=== PATIENT | male | born 1935 | race Caucasian/White ===

== ENCOUNTER 2022-11-12 11:32 | Inpatient (IN) | payer MEDICARE, OTHER, MEDICAID ==
[2022-11-12] MEDS ORDERED: Acetaminophen/HYDROcodone 325-5 MG Tab PO PRN (16:09)
[2022-11-12] MEDS ORDERED: LORazepam 0.5 MG Tab PO PRN (16:57)
[2022-11-12] MEDS ORDERED: Albuterol 6.7 GM Inhaler INH PRN (17:29)
[2022-11-12 17:32] LABS: ANION GAP 10.9 meq/L (7-15)
[2022-11-12 18:40] LABS: CORONAVIRUS COVID-19 NAA NEGATIVE (NEGATIVE); RESPIRATORY SYNCYTIAL VIR NAA NEGATIVE (NEGATIVE)
[2022-11-12] MEDS ORDERED: Warfarin 5 MG Tab PO ONE (18:56)
[2022-11-12] MEDS: Magnesium Oxide 400 MG Tab PO SCH (19:36)
[2022-11-12] MEDS: Melatonin 3 MG Tab PO SCH (20:25)
[2022-11-13] MEDS: Acetaminophen/HYDROcodone 325-5 MG Tab PO PRN ×5 (00:07→23:46)
[2022-11-13] MEDS: Tiotropium Bromide 4 GM Inhalation Spray (2.5mcg/1 dose; 10 doses) INH SCH (07:29)
[2022-11-13] MEDS: Polyethylene Glycol 3350 Powder 17 GM Packet PO SCH (07:29)
[2022-11-13] MEDS: Ferrous Sulfate 325 MG Tab PO SCH (07:29)
[2022-11-13] MEDS: Calcium Carbonate/Vitamin D3 1500 MG-400 Units Tab PO SCH (07:29)
[2022-11-13] MEDS: Furosemide 40 MG Tab PO SCH (07:29)
[2022-11-13] MEDS: Magnesium Oxide 400 MG Tab PO SCH ×2 (07:29→17:32)
[2022-11-13] MEDS: Terazosin 1 MG Cap PO SCH (07:31)
[2022-11-13] MEDS: Enoxaparin 30 MG/0.3 ML Syringe SUBCUT SCH ×2 (11:37→22:21)
[2022-11-13] MEDS: Ciprofloxacin 500 MG Tab PO SCH (17:32)
[2022-11-13] MEDS ORDERED: Nitrofurantoin Monohydrate/Macrocrystalline 100 MG Cap PO SCH (18:00)
[2022-11-13] MEDS ORDERED: Warfarin 5 MG Tab PO SCH (18:00)
[2022-11-13] MEDS: Melatonin 3 MG Tab PO SCH (19:11)
[2022-11-13] MEDS: Cyclobenzaprine 10 MG Tab PO PRN (19:59)
[2022-11-14] MEDS: Acetaminophen/HYDROcodone 325-5 MG Tab PO PRN ×3 (09:33→20:49)
[2022-11-14] MEDS: Polyethylene Glycol 3350 Powder 17 GM Packet PO SCH (09:46)
[2022-11-14] MEDS: Calcium Carbonate/Vitamin D3 1500 MG-400 Units Tab PO SCH (09:46)
[2022-11-14] MEDS: Tamsulosin 0.4 MG Cap.ER PO SCH (09:46)
[2022-11-14] MEDS: Terazosin 1 MG Cap PO SCH (09:47)
[2022-11-14] MEDS: Ciprofloxacin 500 MG Tab PO SCH ×2 (09:49→17:47)
[2022-11-14] MEDS: Furosemide 40 MG Tab PO SCH (09:49)
[2022-11-14] MEDS: Magnesium Oxide 400 MG Tab PO SCH ×2 (09:49→17:47)
[2022-11-14] MEDS: Tiotropium Bromide 4 GM Inhalation Spray (2.5mcg/1 dose; 10 doses) INH SCH (09:50)
[2022-11-14] MEDS: Ferrous Sulfate 325 MG Tab PO SCH (09:50)
[2022-11-14] MEDS: Enoxaparin 30 MG/0.3 ML Syringe SUBCUT SCH (11:28)
[2022-11-14] MEDS ORDERED: Glycerin 5.4 GM/7.5 ML Suppository RECTAL ONE (12:27)
[2022-11-14] MEDS ORDERED: Warfarin 2.5 MG Tab PO SCH (18:00)
[2022-11-14] MEDS: Melatonin 3 MG Tab PO SCH (20:45)
[2022-11-15] MEDS: Acetaminophen/HYDROcodone 325-5 MG Tab PO PRN ×4 (02:50→19:30)
[2022-11-15] MEDS: Ciprofloxacin 500 MG Tab PO SCH ×2 (07:50→17:26)
[2022-11-15] MEDS: Calcium Carbonate/Vitamin D3 1500 MG-400 Units Tab PO SCH (07:50)
[2022-11-15] MEDS: Furosemide 40 MG Tab PO SCH (07:51)
[2022-11-15] MEDS: Polyethylene Glycol 3350 Powder 17 GM Packet PO SCH (07:51)
[2022-11-15] MEDS: Ferrous Sulfate 325 MG Tab PO SCH (07:51)
[2022-11-15] MEDS: Magnesium Oxide 400 MG Tab PO SCH ×2 (07:51→17:26)
[2022-11-15] MEDS: Tamsulosin 0.4 MG Cap.ER PO SCH (07:51)
[2022-11-15] MEDS: Tiotropium Bromide 4 GM Inhalation Spray (2.5mcg/1 dose; 10 doses) INH SCH (08:00)
[2022-11-15] MEDS: Terazosin 1 MG Cap PO SCH (08:00)
[2022-11-15] MEDS: Acetaminophen 500 MG Tab PO SCH ×2 (17:26→21:19)
[2022-11-15] MEDS: Melatonin 3 MG Tab PO SCH (20:50)
[2022-11-16] MEDS: Acetaminophen/HYDROcodone 325-5 MG Tab PO PRN ×4 (02:59→18:04)
[2022-11-16] MEDS: Acetaminophen 500 MG Tab PO SCH (03:20)
[2022-11-16] MEDS: Calcium Carbonate/Vitamin D3 1500 MG-400 Units Tab PO SCH (07:32)
[2022-11-16] MEDS: Furosemide 40 MG Tab PO SCH (07:32)
[2022-11-16] MEDS: Ferrous Sulfate 325 MG Tab PO SCH (07:32)
[2022-11-16] MEDS: Tamsulosin 0.4 MG Cap.ER PO SCH (07:32)
[2022-11-16] MEDS: Polyethylene Glycol 3350 Powder 17 GM Packet PO SCH (07:32)
[2022-11-16] MEDS: Ciprofloxacin 500 MG Tab PO SCH ×2 (07:32→18:04)
[2022-11-16] MEDS: Magnesium Oxide 400 MG Tab PO SCH ×2 (07:32→18:04)
[2022-11-16] MEDS: Terazosin 1 MG Cap PO SCH (07:32)
[2022-11-16] MEDS: Tiotropium Bromide 4 GM Inhalation Spray (2.5mcg/1 dose; 10 doses) INH SCH (07:38)
[2022-11-16] MEDS ORDERED: Bisacodyl 10 MG Supp RECTAL PRN (14:05)
[2022-11-16] MEDS: Acetaminophen 500 MG Tab PO PRN (14:08)
[2022-11-16] MEDS: Warfarin 2.5 MG Tab PO SCH (18:05)
[2022-11-16] MEDS: Melatonin 3 MG Tab PO SCH (19:31)
[2022-11-17] MEDS: Acetaminophen/HYDROcodone 325-5 MG Tab PO PRN ×4 (04:41→20:11)
[2022-11-17] MEDS: Tiotropium Bromide 4 GM Inhalation Spray (2.5mcg/1 dose; 10 doses) INH SCH (08:09)
[2022-11-17] MEDS: Magnesium Oxide 400 MG Tab PO SCH ×2 (08:09→18:25)
[2022-11-17] MEDS: Calcium Carbonate/Vitamin D3 1500 MG-400 Units Tab PO SCH (08:10)
[2022-11-17] MEDS: Ferrous Sulfate 325 MG Tab PO SCH (08:10)
[2022-11-17] MEDS: Furosemide 40 MG Tab PO SCH (08:10)
[2022-11-17] MEDS: Ciprofloxacin 500 MG Tab PO SCH ×2 (08:10→18:25)
[2022-11-17] MEDS: Polyethylene Glycol 3350 Powder 17 GM Packet PO SCH (08:10)
[2022-11-17] MEDS: Tamsulosin 0.4 MG Cap.ER PO SCH (08:10)
[2022-11-17] MEDS: Terazosin 1 MG Cap PO SCH (08:10)
[2022-11-17] MEDS: Acetaminophen 500 MG Tab PO PRN (18:25)
[2022-11-17] MEDS: Warfarin 5 MG Tab PO SCH (18:26)
[2022-11-17] MEDS: Melatonin 3 MG Tab PO SCH (20:06)
[2022-11-18] MEDS: Polyethylene Glycol 3350 Powder 17 GM Packet PO SCH (08:37)
[2022-11-18] MEDS: Tiotropium Bromide 4 GM Inhalation Spray (2.5mcg/1 dose; 10 doses) INH SCH (08:37)
[2022-11-18] MEDS: Ciprofloxacin 500 MG Tab PO SCH ×2 (08:38→17:07)
[2022-11-18] MEDS: Acetaminophen/HYDROcodone 325-5 MG Tab PO PRN ×3 (08:38→19:58)
[2022-11-18] MEDS: Terazosin 1 MG Cap PO SCH (08:38)
[2022-11-18] MEDS: Calcium Carbonate/Vitamin D3 1500 MG-400 Units Tab PO SCH (08:38)
[2022-11-18] MEDS: Furosemide 40 MG Tab PO SCH (08:39)
[2022-11-18] MEDS: Ferrous Sulfate 325 MG Tab PO SCH (08:39)
[2022-11-18] MEDS: Magnesium Oxide 400 MG Tab PO SCH ×2 (08:39→17:07)
[2022-11-18] MEDS: Tamsulosin 0.4 MG Cap.ER PO SCH (08:39)
[2022-11-18] MEDS: Acetaminophen 500 MG Tab PO PRN (11:29)
[2022-11-18] MEDS: Warfarin 5 MG Tab PO SCH (17:07)
[2022-11-18] MEDS: Melatonin 3 MG Tab PO SCH (19:59)
[2022-11-18] MEDS: Cyclobenzaprine 10 MG Tab PO PRN (21:14)
[2022-11-19] MEDS: Acetaminophen/HYDROcodone 325-5 MG Tab PO PRN ×5 (02:17→21:38)
[2022-11-19] MEDS: Calcium Carbonate/Vitamin D3 1500 MG-400 Units Tab PO SCH (07:40)
[2022-11-19] MEDS: Furosemide 40 MG Tab PO SCH (07:40)
[2022-11-19] MEDS: Tamsulosin 0.4 MG Cap.ER PO SCH (07:40)
[2022-11-19] MEDS: Magnesium Oxide 400 MG Tab PO SCH ×2 (07:41→17:30)
[2022-11-19] MEDS: Ferrous Sulfate 325 MG Tab PO SCH (07:41)
[2022-11-19] MEDS: Terazosin 1 MG Cap PO SCH (07:41)
[2022-11-19] MEDS: Polyethylene Glycol 3350 Powder 17 GM Packet PO SCH (07:41)
[2022-11-19] MEDS: Tiotropium Bromide 4 GM Inhalation Spray (2.5mcg/1 dose; 10 doses) INH SCH (07:43)
[2022-11-19] MEDS: Acetaminophen 500 MG Tab PO PRN (14:26)
[2022-11-19] MEDS: Warfarin 2.5 MG Tab PO SCH (17:30)
[2022-11-19] MEDS: Melatonin 3 MG Tab PO SCH (21:38)
[2022-11-20] MEDS: Acetaminophen/HYDROcodone 325-5 MG Tab PO PRN ×3 (02:50→18:27)
[2022-11-20] MEDS: Ferrous Sulfate 325 MG Tab PO SCH (07:36)
[2022-11-20] MEDS: Calcium Carbonate/Vitamin D3 1500 MG-400 Units Tab PO SCH (07:36)
[2022-11-20] MEDS: Tamsulosin 0.4 MG Cap.ER PO SCH (07:37)
[2022-11-20] MEDS: Terazosin 1 MG Cap PO SCH (07:37)
[2022-11-20] MEDS: Furosemide 40 MG Tab PO SCH (07:39)
[2022-11-20] MEDS: Magnesium Oxide 400 MG Tab PO SCH ×2 (07:39→17:29)
[2022-11-20] MEDS: Polyethylene Glycol 3350 Powder 17 GM Packet PO SCH (07:39)
[2022-11-20] MEDS: Tiotropium Bromide 4 GM Inhalation Spray (2.5mcg/1 dose; 10 doses) INH SCH (07:41)
[2022-11-20] MEDS: Magnesium Hydroxide 400 MG/5 ML Susp 30 ML Cup PO PRN (10:59)
[2022-11-20] MEDS: Warfarin 5 MG Tab PO SCH (17:29)
[2022-11-20] MEDS: Acetaminophen 500 MG Tab PO PRN (20:20)
[2022-11-20] MEDS: Melatonin 3 MG Tab PO SCH (20:20)
[2022-11-20] MEDS: Cyclobenzaprine 10 MG Tab PO PRN (20:21)
[2022-11-21] MEDS: Acetaminophen/HYDROcodone 325-5 MG Tab PO PRN ×4 (01:24→19:51)
[2022-11-21] MEDS: Tiotropium Bromide 4 GM Inhalation Spray (2.5mcg/1 dose; 10 doses) INH SCH (07:30)
[2022-11-21] MEDS: Polyethylene Glycol 3350 Powder 17 GM Packet PO SCH (07:31)
[2022-11-21] MEDS: Terazosin 1 MG Cap PO SCH (07:32)
[2022-11-21] MEDS: Furosemide 40 MG Tab PO SCH (07:33)
[2022-11-21] MEDS: Tamsulosin 0.4 MG Cap.ER PO SCH (07:33)
[2022-11-21] MEDS: Ferrous Sulfate 325 MG Tab PO SCH (07:33)
[2022-11-21] MEDS: Magnesium Oxide 400 MG Tab PO SCH ×2 (07:33→17:33)
[2022-11-21] MEDS: Calcium Carbonate/Vitamin D3 1500 MG-400 Units Tab PO SCH (07:34)
[2022-11-21] MEDS: Warfarin 2.5 MG Tab PO SCH (17:32)
[2022-11-21] MEDS: Melatonin 3 MG Tab PO SCH (19:49)
[2022-11-22] MEDS: Calcium Carbonate/Vitamin D3 1500 MG-400 Units Tab PO SCH (07:39)
[2022-11-22] MEDS: Tamsulosin 0.4 MG Cap.ER PO SCH (07:39)
[2022-11-22] MEDS: Ferrous Sulfate 325 MG Tab PO SCH (07:39)
[2022-11-22] MEDS: Furosemide 40 MG Tab PO SCH (07:40)
[2022-11-22] MEDS: Terazosin 1 MG Cap PO SCH (07:40)
[2022-11-22] MEDS: Magnesium Oxide 400 MG Tab PO SCH ×2 (07:41→17:46)
[2022-11-22] MEDS: Polyethylene Glycol 3350 Powder 17 GM Packet PO SCH (07:41)
[2022-11-22] MEDS: Tiotropium Bromide 4 GM Inhalation Spray (2.5mcg/1 dose; 10 doses) INH SCH (07:41)
[2022-11-22] MEDS: Acetaminophen/HYDROcodone 325-5 MG Tab PO PRN ×2 (08:50→13:05)
[2022-11-22] MEDS: Warfarin 5 MG Tab PO SCH (17:46)
[2022-11-22] MEDS: Acetaminophen 500 MG Tab PO PRN (17:46)
[2022-11-22] MEDS: Melatonin 3 MG Tab PO SCH (21:11)
[2022-11-22] MEDS ORDERED: diphenhydrAMINE 25 MG Cap PO ONE (23:18)
[2022-11-22] MEDS ORDERED: diphenhydrAMINE 25 MG Cap PO PRN (23:21)
[2022-11-22] MEDS: Acetaminophen 500 MG Tab PO SCH (23:34)
[2022-11-23] MEDS: Polyethylene Glycol 3350 Powder 17 GM Packet PO SCH (07:22)
[2022-11-23] MEDS: Tamsulosin 0.4 MG Cap.ER PO SCH (07:22)
[2022-11-23] MEDS: Acetaminophen 500 MG Tab PO SCH ×3 (07:22→23:38)
[2022-11-23] MEDS: Terazosin 1 MG Cap PO SCH (07:22)
[2022-11-23] MEDS: Magnesium Chloride 64 MG Tab.ER PO SCH ×2 (07:23→17:35)
[2022-11-23] MEDS: Ferrous Sulfate 325 MG Tab PO SCH (07:23)
[2022-11-23] MEDS: Furosemide 40 MG Tab PO SCH (07:23)
[2022-11-23] MEDS: Calcium Carbonate/Vitamin D3 1500 MG-400 Units Tab PO SCH (07:23)
[2022-11-23] MEDS: Tiotropium Bromide 4 GM Inhalation Spray (2.5mcg/1 dose; 10 doses) INH SCH (07:23)
[2022-11-23] MEDS: Warfarin 2.5 MG Tab PO SCH (17:35)
[2022-11-23] MEDS: Melatonin 3 MG Tab PO SCH (20:49)
[2022-11-23] MEDS: diphenhydrAMINE 25 MG Cap PO PRN (23:38)
[2022-11-24] MEDS: Acetaminophen 500 MG Tab PO SCH ×3 (07:15→22:41)
[2022-11-24] MEDS: Furosemide 40 MG Tab PO SCH (07:17)
[2022-11-24] MEDS: Ferrous Sulfate 325 MG Tab PO SCH (07:17)
[2022-11-24] MEDS: Calcium Carbonate/Vitamin D3 1500 MG-400 Units Tab PO SCH (07:17)
[2022-11-24] MEDS: Tiotropium Bromide 4 GM Inhalation Spray (2.5mcg/1 dose; 10 doses) INH SCH (07:17)
[2022-11-24] MEDS: Magnesium Chloride 64 MG Tab.ER PO SCH ×2 (07:17→17:17)
[2022-11-24] MEDS: Tamsulosin 0.4 MG Cap.ER PO SCH (07:17)
[2022-11-24] MEDS: Polyethylene Glycol 3350 Powder 17 GM Packet PO SCH (07:17)
[2022-11-24] MEDS: Terazosin 1 MG Cap PO SCH (07:17)
[2022-11-24] MEDS: Warfarin 5 MG Tab PO SCH (17:17)
[2022-11-24] MEDS: Melatonin 3 MG Tab PO SCH (22:01)
[2022-11-25] MEDS: Acetaminophen 500 MG Tab PO SCH ×4 (07:15→23:20)
[2022-11-25] MEDS: Ferrous Sulfate 325 MG Tab PO SCH (07:16)
[2022-11-25] MEDS: Calcium Carbonate/Vitamin D3 1500 MG-400 Units Tab PO SCH (07:16)
[2022-11-25] MEDS: Magnesium Chloride 64 MG Tab.ER PO SCH ×2 (07:16→17:03)
[2022-11-25] MEDS: Terazosin 1 MG Cap PO SCH (07:16)
[2022-11-25] MEDS: Tamsulosin 0.4 MG Cap.ER PO SCH (07:18)
[2022-11-25] MEDS: Furosemide 40 MG Tab PO SCH (07:18)
[2022-11-25] MEDS: Polyethylene Glycol 3350 Powder 17 GM Packet PO SCH (07:19)
[2022-11-25] MEDS: Tiotropium Bromide 4 GM Inhalation Spray (2.5mcg/1 dose; 10 doses) INH SCH (10:40)
[2022-11-25] MEDS: Warfarin 5 MG Tab PO SCH (17:03)
[2022-11-25] MEDS: traMADol 50 MG Tab PO PRN (19:23)
[2022-11-25] MEDS: Melatonin 3 MG Tab PO SCH (20:58)
[2022-11-26] MEDS: traMADol 50 MG Tab PO PRN ×4 (07:58→21:33)
[2022-11-26] MEDS: Tiotropium Bromide 4 GM Inhalation Spray (2.5mcg/1 dose; 10 doses) INH SCH (07:58)
[2022-11-26] MEDS: Polyethylene Glycol 3350 Powder 17 GM Packet PO SCH (07:58)
[2022-11-26] MEDS: Calcium Carbonate/Vitamin D3 1500 MG-400 Units Tab PO SCH (07:59)
[2022-11-26] MEDS: Acetaminophen 500 MG Tab PO SCH ×2 (07:59→16:12)
[2022-11-26] MEDS: Furosemide 40 MG Tab PO SCH (08:00)
[2022-11-26] MEDS: Magnesium Chloride 64 MG Tab.ER PO SCH ×2 (08:00→17:18)
[2022-11-26] MEDS: Tamsulosin 0.4 MG Cap.ER PO SCH (08:00)
[2022-11-26] MEDS: Ferrous Sulfate 325 MG Tab PO SCH (08:00)
[2022-11-26] MEDS: Terazosin 1 MG Cap PO SCH (08:00)
[2022-11-26] MEDS: Melatonin 3 MG Tab PO SCH (20:56)
[2022-11-27] MEDS: Acetaminophen 500 MG Tab PO SCH ×4 (02:01→23:27)
[2022-11-27] MEDS: traMADol 50 MG Tab PO PRN ×4 (08:02→20:52)
[2022-11-27] MEDS: Tamsulosin 0.4 MG Cap.ER PO SCH (08:02)
[2022-11-27] MEDS: Furosemide 40 MG Tab PO SCH (08:03)
[2022-11-27] MEDS: Polyethylene Glycol 3350 Powder 17 GM Packet PO SCH (08:05)
[2022-11-27] MEDS: Ferrous Sulfate 325 MG Tab PO SCH (08:06)
[2022-11-27] MEDS: Calcium Carbonate/Vitamin D3 1500 MG-400 Units Tab PO SCH (08:06)
[2022-11-27] MEDS: Magnesium Chloride 64 MG Tab.ER PO SCH ×2 (08:06→18:18)
[2022-11-27] MEDS: Tiotropium Bromide 4 GM Inhalation Spray (2.5mcg/1 dose; 10 doses) INH SCH (09:39)
[2022-11-27] MEDS: Terazosin 1 MG Cap PO SCH (09:39)
[2022-11-27] MEDS: Melatonin 3 MG Tab PO SCH (20:53)
[2022-11-28] MEDS: Tamsulosin 0.4 MG Cap.ER PO SCH (07:36)
[2022-11-28] MEDS: Terazosin 1 MG Cap PO SCH (07:36)
[2022-11-28] MEDS: Furosemide 40 MG Tab PO SCH (07:36)
[2022-11-28] MEDS: Calcium Carbonate/Vitamin D3 1500 MG-400 Units Tab PO SCH (07:36)
[2022-11-28] MEDS: Ferrous Sulfate 325 MG Tab PO SCH (07:36)
[2022-11-28] MEDS: Magnesium Chloride 64 MG Tab.ER PO SCH ×2 (07:36→17:38)
[2022-11-28] MEDS: Acetaminophen 500 MG Tab PO SCH ×2 (07:36→16:48)
[2022-11-28] MEDS: Tiotropium Bromide 4 GM Inhalation Spray (2.5mcg/1 dose; 10 doses) INH SCH (07:38)
[2022-11-28] MEDS: traMADol 50 MG Tab PO PRN ×3 (08:55→20:57)
[2022-11-28] MEDS: Polyethylene Glycol 3350 Powder 17 GM Packet PO SCH (12:45)
[2022-11-28] MEDS ORDERED: Warfarin 5 MG Tab PO SCH (18:00)
[2022-11-28] MEDS: Magnesium Hydroxide 400 MG/5 ML Susp 30 ML Cup PO PRN (20:04)
[2022-11-28] MEDS: Melatonin 3 MG Tab PO SCH (20:04)
[2022-11-29] MEDS: Acetaminophen 500 MG Tab PO SCH ×4 (00:09→23:00)
[2022-11-29] MEDS: Magnesium Chloride 64 MG Tab.ER PO SCH ×2 (07:49→17:02)
[2022-11-29] MEDS: Ferrous Sulfate 325 MG Tab PO SCH (07:49)
[2022-11-29] MEDS: Terazosin 1 MG Cap PO SCH (07:50)
[2022-11-29] MEDS: Furosemide 40 MG Tab PO SCH (07:50)
[2022-11-29] MEDS: Polyethylene Glycol 3350 Powder 17 GM Packet PO SCH (07:50)
[2022-11-29] MEDS: Calcium Carbonate/Vitamin D3 1500 MG-400 Units Tab PO SCH (07:50)
[2022-11-29] MEDS: Tiotropium Bromide 4 GM Inhalation Spray (2.5mcg/1 dose; 10 doses) INH SCH (07:50)
[2022-11-29] MEDS: Tamsulosin 0.4 MG Cap.ER PO SCH (07:50)
[2022-11-29] MEDS ORDERED: Warfarin 2.5 MG Tab PO SCH (18:00)
[2022-11-29] MEDS: Melatonin 3 MG Tab PO SCH (20:53)
[2022-11-29] MEDS: diphenhydrAMINE 25 MG Cap PO PRN (23:18)
[2022-11-30] MEDS ORDERED: traMADol 50 MG Tab PO ONE (02:29)
[2022-11-30] MEDS: Magnesium Chloride 64 MG Tab.ER PO SCH ×2 (08:33→19:52)
[2022-11-30] MEDS: Tamsulosin 0.4 MG Cap.ER PO SCH (08:33)
[2022-11-30] MEDS: Tiotropium Bromide 4 GM Inhalation Spray (2.5mcg/1 dose; 10 doses) INH SCH (08:33)
[2022-11-30] MEDS: Ferrous Sulfate 325 MG Tab PO SCH (08:33)
[2022-11-30] MEDS: Calcium Carbonate/Vitamin D3 1500 MG-400 Units Tab PO SCH (08:33)
[2022-11-30] MEDS: Furosemide 40 MG Tab PO SCH (08:34)
[2022-11-30] MEDS: Acetaminophen 500 MG Tab PO SCH ×2 (08:34→18:45)
[2022-11-30] MEDS: Polyethylene Glycol 3350 Powder 17 GM Packet PO SCH (08:36)
[2022-11-30] MEDS: Terazosin 1 MG Cap PO SCH (08:38)
[2022-11-30] MEDS: Melatonin 3 MG Tab PO SCH (19:52)
[2022-12-01] MEDS: Acetaminophen 500 MG Tab PO SCH ×4 (00:30→22:41)
[2022-12-01] MEDS: Tiotropium Bromide 4 GM Inhalation Spray (2.5mcg/1 dose; 10 doses) INH SCH (07:28)
[2022-12-01] MEDS: Furosemide 40 MG Tab PO SCH (07:28)
[2022-12-01] MEDS: Calcium Carbonate/Vitamin D3 1500 MG-400 Units Tab PO SCH (07:28)
[2022-12-01] MEDS: Tamsulosin 0.4 MG Cap.ER PO SCH (07:28)
[2022-12-01] MEDS: Magnesium Chloride 64 MG Tab.ER PO SCH ×2 (07:28→17:15)
[2022-12-01] MEDS: Ferrous Sulfate 325 MG Tab PO SCH (07:28)
[2022-12-01] MEDS: Polyethylene Glycol 3350 Powder 17 GM Packet PO SCH (07:28)
[2022-12-01] MEDS: Terazosin 1 MG Cap PO SCH (07:29)
[2022-12-01] MEDS: Menthol 10%/Methyl Salicylate 15% 85 GM Tube TOP PRN ×2 (17:13→20:47)
[2022-12-01] MEDS: Warfarin 2.5 MG Tab PO SCH (17:15)
[2022-12-01] MEDS: Melatonin 3 MG Tab PO SCH (20:47)
[2022-12-02] MEDS: Calcium Carbonate/Vitamin D3 1500 MG-400 Units Tab PO SCH (08:12)
[2022-12-02] MEDS: Ferrous Sulfate 325 MG Tab PO SCH (08:12)
[2022-12-02] MEDS: Acetaminophen 500 MG Tab PO SCH ×3 (08:12→22:44)
[2022-12-02] MEDS: Terazosin 1 MG Cap PO SCH (08:12)
[2022-12-02] MEDS: Tamsulosin 0.4 MG Cap.ER PO SCH (08:12)
[2022-12-02] MEDS: Polyethylene Glycol 3350 Powder 17 GM Packet PO SCH (08:12)
[2022-12-02] MEDS: Tiotropium Bromide 4 GM Inhalation Spray (2.5mcg/1 dose; 10 doses) INH SCH (08:12)
[2022-12-02] MEDS: Furosemide 40 MG Tab PO SCH (08:13)
[2022-12-02] MEDS: Magnesium Chloride 64 MG Tab.ER PO SCH ×2 (08:13→17:27)
[2022-12-02] MEDS: Magnesium Hydroxide 400 MG/5 ML Susp 30 ML Cup PO PRN (10:50)
[2022-12-02] MEDS: Warfarin 2.5 MG Tab PO SCH (17:27)
[2022-12-02] MEDS: Melatonin 3 MG Tab PO SCH (20:30)
[2022-12-02] MEDS: Menthol 10%/Methyl Salicylate 15% 85 GM Tube TOP PRN (21:03)
[2022-12-03] MEDS: Polyethylene Glycol 3350 Powder 17 GM Packet PO SCH (08:04)
[2022-12-03] MEDS: Terazosin 1 MG Cap PO SCH (08:05)
[2022-12-03] MEDS: Acetaminophen 500 MG Tab PO SCH ×2 (08:05→15:42)
[2022-12-03] MEDS: Furosemide 40 MG Tab PO SCH (08:06)
[2022-12-03] MEDS: Calcium Carbonate/Vitamin D3 1500 MG-400 Units Tab PO SCH (08:06)
[2022-12-03] MEDS: Ferrous Sulfate 325 MG Tab PO SCH (08:06)
[2022-12-03] MEDS: Tamsulosin 0.4 MG Cap.ER PO SCH (08:06)
[2022-12-03] MEDS: Magnesium Chloride 64 MG Tab.ER PO SCH ×2 (08:06→17:16)
[2022-12-03] MEDS: Tiotropium Bromide 4 GM Inhalation Spray (2.5mcg/1 dose; 10 doses) INH SCH (08:06)
[2022-12-03] MEDS ORDERED: traMADol 50 MG Tab PO ONE ×2 (16:21→20:15)
[2022-12-03] MEDS: Warfarin 5 MG Tab PO SCH (17:16)
[2022-12-03] MEDS: Magnesium Hydroxide 400 MG/5 ML Susp 30 ML Cup PO PRN (17:21)
[2022-12-03] MEDS: Melatonin 3 MG Tab PO SCH (20:15)
[2022-12-04] MEDS: Acetaminophen 500 MG Tab PO SCH ×4 (00:15→22:29)
[2022-12-04] MEDS: Magnesium Chloride 64 MG Tab.ER PO SCH ×2 (07:16→17:21)
[2022-12-04] MEDS: Tamsulosin 0.4 MG Cap.ER PO SCH (07:17)
[2022-12-04] MEDS: Terazosin 1 MG Cap PO SCH (07:18)
[2022-12-04] MEDS: Calcium Carbonate/Vitamin D3 1500 MG-400 Units Tab PO SCH (07:18)
[2022-12-04] MEDS: Furosemide 40 MG Tab PO SCH (07:19)
[2022-12-04] MEDS: Carbidopa/Levodopa 10-100 MG Tab PO SCH ×2 (07:19→17:21)
[2022-12-04] MEDS: Tiotropium Bromide 4 GM Inhalation Spray (2.5mcg/1 dose; 10 doses) INH SCH (07:20)
[2022-12-04] MEDS: Menthol 10%/Methyl Salicylate 15% 85 GM Tube TOP PRN (07:24)
[2022-12-04] MEDS: Polyethylene Glycol 3350 Powder 17 GM Packet PO SCH (09:20)
[2022-12-04] MEDS: Ferrous Sulfate 325 MG Tab PO SCH (14:12)
[2022-12-04] MEDS: Warfarin 2.5 MG Tab PO SCH (17:22)
[2022-12-04] MEDS: Melatonin 3 MG Tab PO SCH (20:07)
[2022-12-05] MEDS: Menthol 10%/Methyl Salicylate 15% 85 GM Tube TOP PRN ×2 (02:54→20:31)
[2022-12-05] MEDS: Tiotropium Bromide 4 GM Inhalation Spray (2.5mcg/1 dose; 10 doses) INH SCH (07:14)
[2022-12-05] MEDS: Carbidopa/Levodopa 10-100 MG Tab PO SCH ×2 (07:15→18:37)
[2022-12-05] MEDS: Calcium Carbonate/Vitamin D3 1500 MG-400 Units Tab PO SCH (07:15)
[2022-12-05] MEDS: Ferrous Sulfate 325 MG Tab PO SCH (07:15)
[2022-12-05] MEDS: Acetaminophen 500 MG Tab PO SCH ×3 (07:15→22:02)
[2022-12-05] MEDS: Tamsulosin 0.4 MG Cap.ER PO SCH (07:15)
[2022-12-05] MEDS: Magnesium Chloride 64 MG Tab.ER PO SCH ×2 (07:16→18:38)
[2022-12-05] MEDS: Terazosin 1 MG Cap PO SCH (07:16)
[2022-12-05] MEDS: Polyethylene Glycol 3350 Powder 17 GM Packet PO SCH (09:47)
[2022-12-05] MEDS ORDERED: Furosemide 40 MG Tab PO ONE (15:00)
[2022-12-05] MEDS: Warfarin 2.5 MG Tab PO SCH (18:38)
[2022-12-05] MEDS: Melatonin 3 MG Tab PO SCH (20:31)
[2022-12-06] MEDS: Acetaminophen 500 MG Tab PO SCH ×4 (01:48→23:20)
[2022-12-06] MEDS: Terazosin 1 MG Cap PO SCH (07:43)
[2022-12-06] MEDS: Tiotropium Bromide 4 GM Inhalation Spray (2.5mcg/1 dose; 10 doses) INH SCH (07:43)
[2022-12-06] MEDS: Calcium Carbonate/Vitamin D3 1500 MG-400 Units Tab PO SCH (07:46)
[2022-12-06] MEDS: Furosemide 40 MG Tab PO SCH (07:46)
[2022-12-06] MEDS: Magnesium Chloride 64 MG Tab.ER PO SCH ×2 (07:46→17:32)
[2022-12-06] MEDS: Tamsulosin 0.4 MG Cap.ER PO SCH (07:47)
[2022-12-06] MEDS: Polyethylene Glycol 3350 Powder 17 GM Packet PO SCH (07:47)
[2022-12-06] MEDS: Ferrous Sulfate 325 MG Tab PO SCH (07:47)
[2022-12-06] MEDS: Carbidopa/Levodopa 10-100 MG Tab PO SCH ×2 (07:47→17:24)
[2022-12-06] MEDS: Menthol 10%/Methyl Salicylate 15% 85 GM Tube TOP PRN (13:18)
[2022-12-06] MEDS: Warfarin 2.5 MG Tab PO SCH (17:24)
[2022-12-06] MEDS: Melatonin 3 MG Tab PO SCH (20:01)
[2022-12-07] MEDS: Tiotropium Bromide 4 GM Inhalation Spray (2.5mcg/1 dose; 10 doses) INH SCH (07:12)
[2022-12-07] MEDS: Furosemide 40 MG Tab PO SCH (07:13)
[2022-12-07] MEDS: Tamsulosin 0.4 MG Cap.ER PO SCH (07:13)
[2022-12-07] MEDS: Terazosin 1 MG Cap PO SCH (07:13)
[2022-12-07] MEDS: Carbidopa/Levodopa 10-100 MG Tab PO SCH ×2 (07:14→17:27)
[2022-12-07] MEDS: Acetaminophen 500 MG Tab PO SCH ×3 (07:14→22:33)
[2022-12-07] MEDS: Ferrous Sulfate 325 MG Tab PO SCH (07:15)
[2022-12-07] MEDS: Polyethylene Glycol 3350 Powder 17 GM Packet PO SCH (07:18)
[2022-12-07] MEDS: Calcium Carbonate/Vitamin D3 1500 MG-400 Units Tab PO SCH (09:44)
[2022-12-07] MEDS: Magnesium Chloride 64 MG Tab.ER PO SCH ×2 (09:44→17:26)
[2022-12-07] MEDS: Menthol 10%/Methyl Salicylate 15% 85 GM Tube TOP PRN (13:43)
[2022-12-07] MEDS: Warfarin 5 MG Tab PO SCH (17:27)
[2022-12-07] MEDS: Melatonin 3 MG Tab PO SCH (20:04)
[2022-12-08] MEDS: Menthol 10%/Methyl Salicylate 15% 85 GM Tube TOP PRN ×2 (01:35→12:06)
[2022-12-08] MEDS: Furosemide 40 MG Tab PO SCH (07:24)
[2022-12-08] MEDS: Carbidopa/Levodopa 10-100 MG Tab PO SCH ×2 (07:24→17:47)
[2022-12-08] MEDS: Tamsulosin 0.4 MG Cap.ER PO SCH (07:24)
[2022-12-08] MEDS: Terazosin 1 MG Cap PO SCH (07:24)
[2022-12-08] MEDS: Calcium Carbonate/Vitamin D3 1500 MG-400 Units Tab PO SCH (07:25)
[2022-12-08] MEDS: Ferrous Sulfate 325 MG Tab PO SCH (07:25)
[2022-12-08] MEDS: Acetaminophen 500 MG Tab PO SCH ×3 (07:26→22:49)
[2022-12-08] MEDS: Polyethylene Glycol 3350 Powder 17 GM Packet PO SCH (07:27)
[2022-12-08] MEDS: Tiotropium Bromide 4 GM Inhalation Spray (2.5mcg/1 dose; 10 doses) INH SCH (07:27)
[2022-12-08] MEDS: Magnesium Chloride 64 MG Tab.ER PO SCH ×2 (07:28→17:47)
[2022-12-08] MEDS: Warfarin 2.5 MG Tab PO SCH (17:47)
[2022-12-08] MEDS: Melatonin 3 MG Tab PO SCH (20:05)
[2022-12-09] MEDS: Menthol 10%/Methyl Salicylate 15% 85 GM Tube TOP PRN ×2 (00:06→13:58)
[2022-12-09] MEDS: Carbidopa/Levodopa 10-100 MG Tab PO SCH ×2 (07:51→16:54)
[2022-12-09] MEDS: Acetaminophen 500 MG Tab PO SCH ×3 (07:52→23:23)
[2022-12-09] MEDS: Calcium Carbonate/Vitamin D3 1500 MG-400 Units Tab PO SCH (07:52)
[2022-12-09] MEDS: Ferrous Sulfate 325 MG Tab PO SCH (07:53)
[2022-12-09] MEDS: Tamsulosin 0.4 MG Cap.ER PO SCH (07:54)
[2022-12-09] MEDS: Terazosin 1 MG Cap PO SCH (07:54)
[2022-12-09] MEDS: Magnesium Chloride 64 MG Tab.ER PO SCH ×2 (07:55→17:59)
[2022-12-09] MEDS: Furosemide 40 MG Tab PO SCH (07:55)
[2022-12-09] MEDS: Tiotropium Bromide 4 GM Inhalation Spray (2.5mcg/1 dose; 10 doses) INH SCH (07:58)
[2022-12-09] MEDS: Polyethylene Glycol 3350 Powder 17 GM Packet PO SCH (10:09)
[2022-12-09] MEDS: Warfarin 2.5 MG Tab PO SCH (17:58)
[2022-12-09] MEDS: Melatonin 3 MG Tab PO SCH (20:32)
[2022-12-10] MEDS: Menthol 10%/Methyl Salicylate 15% 85 GM Tube TOP PRN ×2 (01:00→13:17)
[2022-12-10] MEDS: Carbidopa/Levodopa 10-100 MG Tab PO SCH ×2 (08:05→17:22)
[2022-12-10] MEDS: Acetaminophen 500 MG Tab PO SCH ×3 (08:06→23:19)
[2022-12-10] MEDS: Ferrous Sulfate 325 MG Tab PO SCH (08:07)
[2022-12-10] MEDS: Calcium Carbonate/Vitamin D3 1500 MG-400 Units Tab PO SCH (08:07)
[2022-12-10] MEDS: Tamsulosin 0.4 MG Cap.ER PO SCH (08:07)
[2022-12-10] MEDS: Magnesium Chloride 64 MG Tab.ER PO SCH ×2 (08:08→17:23)
[2022-12-10] MEDS: Terazosin 1 MG Cap PO SCH (08:08)
[2022-12-10] MEDS: Furosemide 40 MG Tab PO SCH (08:08)
[2022-12-10] MEDS: Polyethylene Glycol 3350 Powder 17 GM Packet PO SCH (08:09)
[2022-12-10] MEDS: Tiotropium Bromide 4 GM Inhalation Spray (2.5mcg/1 dose; 10 doses) INH SCH (08:09)
[2022-12-10] MEDS: Warfarin 5 MG Tab PO SCH (17:23)
[2022-12-10] MEDS: Melatonin 3 MG Tab PO SCH (19:57)
[2022-12-11] MEDS: Menthol 10%/Methyl Salicylate 15% 85 GM Tube TOP PRN ×2 (01:00→20:22)
[2022-12-11] MEDS: Calcium Carbonate/Vitamin D3 1500 MG-400 Units Tab PO SCH (08:09)
[2022-12-11] MEDS: Magnesium Chloride 64 MG Tab.ER PO SCH ×2 (08:09→17:20)
[2022-12-11] MEDS: Acetaminophen 500 MG Tab PO SCH ×3 (08:10→22:45)
[2022-12-11] MEDS: Ferrous Sulfate 325 MG Tab PO SCH (08:10)
[2022-12-11] MEDS: Carbidopa/Levodopa 10-100 MG Tab PO SCH ×2 (08:11→17:19)
[2022-12-11] MEDS: Tamsulosin 0.4 MG Cap.ER PO SCH (08:12)
[2022-12-11] MEDS: Terazosin 1 MG Cap PO SCH (08:12)
[2022-12-11] MEDS: Furosemide 40 MG Tab PO SCH (08:13)
[2022-12-11] MEDS: Polyethylene Glycol 3350 Powder 510 GM Bot PO SCH (08:13)
[2022-12-11] MEDS: Tiotropium Bromide 4 GM Inhalation Spray (2.5mcg/1 dose; 10 doses) INH SCH (08:14)
[2022-12-11] MEDS: Warfarin 2.5 MG Tab PO SCH (17:19)
[2022-12-11] MEDS: Melatonin 3 MG Tab PO SCH (20:22)
[2022-12-12] MEDS: Acetaminophen 500 MG Tab PO SCH (07:49)
[2022-12-12] MEDS: Tiotropium Bromide 4 GM Inhalation Spray (2.5mcg/1 dose; 10 doses) INH SCH (07:50)
[2022-12-12] MEDS: Magnesium Chloride 64 MG Tab.ER PO SCH (07:50)
[2022-12-12] MEDS: Calcium Carbonate/Vitamin D3 1500 MG-400 Units Tab PO SCH (07:50)
[2022-12-12] MEDS: Ferrous Sulfate 325 MG Tab PO SCH (07:50)
[2022-12-12] MEDS: Tamsulosin 0.4 MG Cap.ER PO SCH (07:51)
[2022-12-12] MEDS: Carbidopa/Levodopa 10-100 MG Tab PO SCH (07:51)
[2022-12-12] MEDS: Polyethylene Glycol 3350 Powder 510 GM Bot PO SCH (07:52)
[2022-12-12] MEDS: Furosemide 40 MG Tab PO SCH (07:52)
[2022-12-12] MEDS: Terazosin 1 MG Cap PO SCH (07:52)
[2022-12-12] MEDS: Menthol 10%/Methyl Salicylate 15% 85 GM Tube TOP PRN (12:18)
[2022-12-13] MEDS ORDERED: Warfarin 2.5 MG Tab PO SCH (18:00)
[2022-12-14] MEDS ORDERED: Warfarin 5 MG Tab PO SCH (18:00)
== END 2022-12-12 13:10 | DRG 560 ==
LOC: LL.MS 15:30 → LL.SWG 12-06 10:05
PROVIDERS: ADMIT Emergency Medicine; ATTEND Emergency Medicine
DX: S72.002D Fracture of unspecified part of neck of left femur, subsequent encounter for closed fracture with routine healing (principal); I48.20 Chronic atrial fibrillation, unspecified; I11.0 Hypertensive heart disease with heart failure; N40.1 Benign prostatic hyperplasia with lower urinary tract symptoms; R35.0 Frequency of micturition; K59.04 Chronic idiopathic constipation; K21.9 Gastro-esophageal reflux disease without esophagitis; Z20.822 Contact with and (suspected) exposure to COVID-19; M79.89 Other specified soft tissue disorders; M79.81 Nontraumatic hematoma of soft tissue; I50.9 Heart failure, unspecified; I25.10 Atherosclerotic heart disease of native coronary artery without angina pectoris; R53.81 Other malaise; N30.90 Cystitis, unspecified without hematuria; K59.00 Constipation, unspecified; Z79.01 Long term (current) use of anticoagulants; Z79.899 Other long term (current) drug therapy
CPT/HCPCS: 0241U; 36415; 36416; 51798; 71045; 80048; 80053; 81001; 83735; 85014; 85018; 85025; 85610; 87086; 87088; 87186; 93005; 93010; 93971; 94640; 97110-GO; 97110-GP; 97162-GP; 97165-GO; 97530-GO; 97530-GP; 97535-GO; 99306; 99307; 99316; A9270-GY; J1650; U0002